=== PATIENT | female | born 2000 | race Caucasian/White ===

== ENCOUNTER 2024-01-01 16:17 | Emergency (ER) | payer MEDICAID ==
[~2024-01-01] VITALS: Ht 175.3 cm; Wt 113.4 kg
[2024-01-01 16:28] VITALS: BP 132/80; PULSE 56; RESP 18; TEMP 97.2; O2SAT 99
[2024-01-01] MEDS: KETOROLAC 30 MG/ML VIAL IM ONE (18:02)
[2024-01-01] MEDS: methocarbamoL 500 MG TAB PO ONE (18:03)
[2024-01-01] MEDS: LIDOCAINE 5% 1 EA PATCH TP ONE (18:04)
[2024-01-01 21:01] VITALS: BP 139/74; PULSE 64; RESP 16; TEMP 97.6; O2SAT 97
== END 2024-01-01 21:00 | disposition home or self-care (01) ==
LOC: EDSEX 16:17 → MED 16:17
DX: S39.012A Strain of muscle, fascia and tendon of lower back, initial encounter (principal); X58.XXXA Exposure to other specified factors, initial encounter; Y92.89 Other specified places as the place of occurrence of the external cause; Y93.89 Activity, other specified; Y99.8 Other external cause status
CPT/HCPCS: 81025; 96372; 99283; J1885